=== PATIENT | male | born 1960 | race American Indian/Alaskan Native ===

== ENCOUNTER 2019-07-02 12:35 | Emergency (ER) | payer OTHER ==
[2019-07-02 12:48] VITALS: BP 138/89
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
--- NOTE | 2019-07-02 13:36 | XRay Report ---
LEFT HAND HISTORY: N. COMPARISON: None. TECHNIQUE: 2 views of the left hand were obtained. FINDINGS: Bones: No fracture or dislocation. Joint spaces: Moderate osteoarthritis at the basal joint of the thumb. See arthritis at the PIP and D IP joints of the fifth finger. Soft tissues: No significant abnormality. Additional findings: None. IMPRESSION: 1. Osteoarthritis as described. Signer Name: Paulie Hernandez MD Signed: 07/02/2019 1:32 PM Workstation Name: [id number]
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
== END 2019-07-02 15:38 | disposition home or self-care (01) ==
LOC: ED 12:35
DX: M25.512 Pain in left shoulder (principal); M54.6 Pain in thoracic spine; M25.551 Pain in right hip; I11.0 Hypertensive heart disease with heart failure; I50.9 Heart failure, unspecified; Z79.899 Other long term (current) drug therapy; V43.52XA Car driver injured in collision with other type car in traffic accident, initial encounter; Y93.89 Activity, other specified; Y92.488 Other paved roadways as the place of occurrence of the external cause; Y99.8 Other external cause status
CPT/HCPCS: 72072; 99283